=== PATIENT | female | born 1945 | race Caucasian/White ===

== ENCOUNTER 2025-05-26 08:25 | Observation (INO) | payer MEDICARE, SELFPAY ==
[2025-05-26] VITALS (23 sets, daily range): BP systolic 113–195; BP diastolic 44–94; PULSE 64–79; RESP 15–18; TEMP 36.4–37.3; O2SAT 90–94
--- NOTE | 2025-05-26 08:30 | DI.CT_ITS ---
Exam(s) CT CHEST WO EXAM: CT CHEST WO CLINICAL HISTORY: L lower rib posterior injury. TECHNIQUE: Imaging protocol: Axial computed tomography images were obtained and coronal and sagittal reformatted images were created and reviewed. Computer aided detection (CAD) was utilized. CONTRAST MATERIAL: Noncontrast COMPARISON: No exams were available for comparison FINDINGS: Pulmonary parenchyma: Mild multifocal bibasilar atelectasis. No consolidation. There are few small pulmonary nodules, 2 at the left lower lobe. There are 2 small perifissural nodules. There is a small nodule lateral right upper lobe. Emphysema: None. Tracheobronchial tree: No mucous plugging. No bronchiectasis . Pleura: Tiny left pleural effusion. Tiny knee left pneumothorax. Heart: The heart is mildly dilated. The coronary arteries show mild calcifications. Aorta: Thoracic aorta non-dilated. Mild atherosclerotic changes. Pulmonary arteries: Prominent which could indicate pulmonary hypertension. Lymph nodes: No enlarged lymph nodes. Bones: Displaced fractures of the left 6th and 7th ribs laterally. No evidence of thoracic spine compression fracture. Degenerative changes are seen. Upper abdomen: Moderate size hiatal hernia. Soft tissues: Soft tissue air adjacent to the left rib fractures and along the left chest wall. IMPRESSION: Displaced fractures of the left 6th and 7th ribs. Tiny left hemopneumothorax. Small amount of air in the soft tissues of the left lateral chest. Scattered small pulmonary nodules. For multiple solid noncalcified nodules smaller than 6 mm in diameter, no routine follow-up is recommended (grade 2B; weak recommendation, moderate-quality evidence). (Heaven et al., 2017) The preliminary [facility] report was reviewed. RADIATION DOSE DELIVERED: Total DLP DATA REPOSITORY: All CT scans at this facility are submitted to the National Radiology Data Registry (NRDR) Dose Index Registry (DIR) with the [employer] (ACR). RADIATION OPTIMIZATION: All CT scans at this facility use at least one of these dose optimization techniques: automated exposure control; mA and/or kV adjustment per patient size (includes targeted exams where dose is matched to clinical indication); or iterative reconstruction.
--- NOTE | 2025-05-26 09:43 | DI.[facility]AD_ITS ---
Addendum created by Torres Hernandez MD on 05/26/2025 9:43:51 AM EDT: THIS REPORT CONTAINS FINDINGS THAT MAY BE CRITICAL TO PATIENT CARE. The findings were verbally communicated via telephone conference with PRADEEP MUNGUIA at 9:43 AM EDT on 05/26/2025. The findings were acknowledged and understood. Initial report created on 05/26/2025 9:42:40 AM EDT: PROCEDURE INFORMATION: Exam: CT Chest Without Contrast; Diagnostic Exam date and time: 05/26/2025 9:01 AM Age: 80 years old Clinical indication: Injury or trauma; Fall; Blunt trauma (contusions or hematomas) TECHNIQUE: Imaging protocol: Diagnostic computed tomography of the chest without contrast. 3D rendering (Not supervised by radiologist): MIP and/or 3D reconstructed images were created by the technologist. COMPARISON: No relevant prior studies available. FINDINGS: Lungs: Bilateral apical fibrotic changes. Subpleural reticular opacities in the right upper lobe. There is a 5 mm nodule in the left lower lobe (series 2, image 125) and another 6 mm nodule in the left lung base (series 2, image 132). Pleural spaces: Tiny left pneumothorax small layering left pleural effusion. Heart: Unremarkable. No cardiomegaly. No pericardial effusion. Coronary arteries: There is mild atherosclerotic calcification of the coronary arteries. Lymph nodes: Prominent pleural-based left pulmonary lymph nodes. Vasculature: The vasculature demonstrates diffuse mild atherosclerotic calcification. Dilatation of the pulmonary trunk and main pulmonary arteries, that can be seen in cases of pulmonary hypertension. Diaphragm: A moderate hiatal hernia is present. Bones/joints: Minimally displaced fractures of the posterior and lateral arch of the left 6th rib and lateral arch of the left 7th rib.The thoracic spine demonstrates mild degenerative changes at multiple levels. Soft tissues: Mild soft tissue emphysema around the fractures of the left 6th and 7th rib. IMPRESSION: 1. Segmental fracture of the left 6th rib and fracture of the lateral arch of the left 7th rib with tiny left hydropneumothorax, likely containing blood products. 2. Scattered pulmonary nodules measuring up to 6 mm. For patients at low risk (minimal or absent history of smoking and of other known risk factors), no routine follow-up is indicated. For patients at high risk (history of smoking or of other known risk factors), consider optional CT Chest at 12 months. (Reference: Heaven) REFERENCES: Heaven Musa et al. Guidelines for Management of Incidental Pulmonary Nodules Detected on CT Images: From the Fleischner Society 2017. Radiology. 2017;284(1):228-243. Dictated and Authenticated by: Torres Hernandez MD. Orderin Thang Bales MD
[2025-05-26] MEDS: Ketorolac 10 MG TAB PO (10:09)
[2025-05-26] MEDS: Acetaminophen 500 MG TAB 1000 MG PO (10:09)
--- NOTE | 2025-05-26 10:37 | W.ED.GENAD ---
Discharge Plan Disposition Patient Disposition: Admit to [facility] Condition: Stable Discharge Details Clinical Impression: Multiple fractures of ribs of left side, Pneumothorax with hemothorax, traumatic Admit Date/Time: 05/26/25 11:32 Admit Provider: Madhu Del Toro Attending Provider: Madhu Del Toro Primary Care Provider: Swathi,Local ED Provider: Nii Munguia HPI General Date/Time Provider Initiated Documentation: 05/26/25 08:35. HPI Narrative: 80 year-old female presents to ED today by POV/ambulating with her family with a chief complaint of fall during the night last night, striking her left back on the corner of a desk, having L back/rib pain and mild shortness of breath with onset around 0130. Quality described as painful to take deep breaths, sharp, no radiation to fever, cough, respiratory distress, headstrike, LOC, nausea, visual changes, slurred speech. Severity is described as moderate to severe. Palliating factors include nothing attempted. Provoking factors include movement. Events leading up to the incident/Associated Symptoms: Patients family was planning on bringing her back to [place] today, then to [facility] tomorrow. Patient not anticoagulated. Related Data Home Medications ?Medication ?Instructions ?Recorded ?Confirmed cyanocobalamin (B12)-cobamamide 1 jayme sublingual DAILY 05/26/25 05/26/25 5,000 mcg-100 mcg sublingual lozenge (B12) metoprolol tartrate 50 mg tablet 50 mg PO BID 05/26/25 05/26/25 paroxetine HCl 20 mg tablet 20 mg PO DAILY 05/26/25 05/26/25 simvastatin 10 mg tablet 10 mg PO HS 05/26/25 05/26/25 Allergies Allergy/AdvReac Type Severity Reaction Status Date / Time fish derived Allergy Nausea Verified 05/26/25 08:32 General Stated Complaint: Chest/Rib JOHN: 3 Review of Systems All systems reviewed & are unremarkable except as noted in HPI and below Exam Narrative Exam Narrative: GENERAL APPEARANCE: Well-nourished, non-toxic, awake and alert, atraumatic, mild acute distress. SKIN: Warm, pink, dry, intact, without rashes/lesions/ulcerations. HEAD: Normocephalic, atraumatic, normal hair distribution for gender/age. EYES: Normal conjunctiva, no exudates on lids/lashes. ENT: Nares patent, no circumoral cyanosis, no facial swelling NECK: Supple, trachea midline, painless cervical ROM, no midline vertebral tenderness/crepitus/step-offs LUNGS/CHEST: Lungs CTA bilaterally-no focally diminished or absent lung sounds, no rhonchi/rales/wheezes diffusely, non-labored respirations-breathing shallow due to pain, normal A/P diameter, symmetrical expansion, no chest wall deformity, exquisite tenderness without subcutaneous emphysema felt, no flail segment seen HEART (CV/PV): Regular rate and rhythm without murmur, no peripheral edema, no JVD. ABDOMEN: Soft, non-distended, no guarding, no tenderness. MSK: Normal ROM, no swelling/deformity to bilateral UEs or LEs, moving all extremities without weakness, no cyanosis, spine midline without tenderness, normal curvature. NEURO: Mental Status AAOx4 - alert to person, place, time, events No facial droop, no forehead involvement. Motor: No focal weakness - strength 5/5 in bilateral UEs and LEs, proximal and distal, symmetric. Sensory: sensation intact to light touch globally. Gait normal: patient ambulated without ataxia into ED room. PSYCH: euthymic, cooperative, pleasant, appropriate speech Course Vital Signs Vital signs: Vital Signs Temperature 37.3 C 05/26/25 08:26 Pulse 72 05/26/25 08:26 Respiratory Rate 18 05/26/25 08:26 Blood Pressure 192/69 H 05/26/25 08:26 Pulse Oximetry 90 L 05/26/25 08:26 Temperature 37.3 C 05/26/25 08:26 Temperature Source Temporal Artery Scan 05/26/25 08:26 Pulse 74 05/26/25 10:17 Respiratory Rate 18 05/26/25 08:26 Respiratory Depth Shallow 05/26/25 08:48 Respiratory Pattern Normal 05/26/25 08:48 Blood Pressure 195/59 H 05/26/25 10:17 Blood Pressure Mean 104 05/26/25 10:17 Blood Pressure Position Sitting 05/26/25 08:26 Pulse Oximetry 92 05/26/25 10:17 Oxygen Delivery Method Room Air 05/26/25 10:17 Oxygen Flow Rate 0 05/26/25 10:17 Pain Level 9 05/26/25 08:48 Medical Decision Making This dictation utilizes [id number] dictation software and may contain unedited grammatical errors. 80 year-old female presents to ED today by POV/ambulating with her family with a chief complaint of fall during the night last night, striking her left back on the corner of a desk, having L back/rib pain and mild shortness of breath with onset around 0130. Quality described as painful to take deep breaths, sharp, no radiation to fever, cough, respiratory distress, headstrike, LOC, nausea, visual changes, slurred speech. Severity is described as moderate to severe. Palliating factors include nothing attempted. Provoking factors include movement. Events leading up to the incident/Associated Symptoms: Patients family was planning on bringing her back to [place] today, then to [facility] tomorrow. Patients' medical history: Hypertension. Family and social history: Noncontributory. Pertinent exam findings / vital signs include abrasion to lower mid posterior lateral ribs on the left side, no overt crepitus or subcutaneous emphysema felt, lungs CTA diffusely, mildly hypoxic at 89% on room air, no signs of head trauma, no midline vertebral tenderness or crepitus or step-offs. Differential / pathologies of concern include rib fractures, pneumothorax, unlikely head strike. Diagnostic studies of: -CT Chest wo Contrast -shows small pneumothorax, small hemothorax, subcutaneous air in complex sixth rib fracture with a segment floating as well as 1/7 rib fracture. Interventions of: - Tylenol and Toradol given p.o., consulted with general surgery on-call Dr. Del Toro who accepted the patient for admission at 1130. ED Course/Assessment/Plan: 80-year-old female had a fall last night around 1:30 in the morning striking a desk with her back, she has multiple rib fractures left side and a complex hemopneumothorax of a small size with some subcutaneous air due to the displacement of her ribs and her mild hypoxia she is admitted to the hospital by general surgery practice. Disposition of Multiple Fractures of Ribs of Left Side, Pneumothorax with hemothorax, traumatic. Patient verbalized understanding of the plan and return to ED criteria and engaged in shared decision making. Medical Records Medical records reviewed: Yes I reviewed the patient's medical records. Imaging Data Radiologic Study: Attestation: I personally reviewed and interpreted this imaging study as follows: Imaging: CT Scan Radiologist's impression: Addendum created by Torres Hernandez MD on 05/26/2025 9:43:51 AM EDT: THIS REPORT CONTAINS FINDINGS THAT MAY BE CRITICAL TO PATIENT CARE. The findings were verbally communicated via telephone conference with NII MUNGUIA at 9:43 AM EDT on 05/26/2025. The findings were acknowledged and understood. Initial report created on 05/26/2025 9:42:40 AM EDT: PROCEDURE INFORMATION: Exam: CT Chest Without Contrast; Diagnostic Exam date and time: 05/26/2025 9:01 AM Age: 80 years old Clinical indication: Injury or trauma; Fall; Blunt trauma (contusions or hematomas) TECHNIQUE: Imaging protocol: Diagnostic computed tomography of the chest without contrast. 3D rendering (Not supervised by radiologist): MIP and/or 3D reconstructed images were created by the technologist. COMPARISON: No relevant prior studies available. FINDINGS: Lungs: Bilateral apical fibrotic changes. Subpleural reticular opacities in the right upper lobe. There is a 5 mm nodule in the left lower lobe (series 2, image 125) and another 6 mm nodule in the left lung base (series 2, image 132). Pleural spaces: Tiny left pneumothorax small layering left pleural effusion. Heart: Unremarkable. No cardiomegaly. No pericardial effusion. Coronary arteries: There is mild atherosclerotic calcification of the coronary arteries. Lymph nodes: Prominent pleural-based left pulmonary lymph nodes. Vasculature: The vasculature demonstrates diffuse mild atherosclerotic calcification. Dilatation of the pulmonary trunk and main pulmonary arteries, that can be seen in cases of pulmonary hypertension. Diaphragm: A moderate hiatal hernia is present. Bones/joints: Minimally displaced fractures of the posterior and lateral arch of the left 6th rib and lateral arch of the left 7th rib.The thoracic spine demonstrates mild degenerative changes at multiple levels. Soft tissues: Mild soft tissue emphysema around the fractures of the left 6th and 7th rib. IMPRESSION: 1. Segmental fracture of the left 6th rib and fracture of the lateral arch of the left 7th rib with tiny left hydropneumothorax, likely containing blood products. 2. Scattered pulmonary nodules measuring up to 6 mm. For patients at low risk (minimal or absent history of smoking and of other known risk factors), no routine follow-up is indicated. For patients at high risk (history of smoking or of other known risk factors), consider optional CT Chest at 12 months. (Reference: Heaven) REFERENCES: Heaven Musa et al. Guidelines for Management of Incidental Pulmonary Nodules Detected on CT Images: From the Fleischner Society 2017. Radiology. 2017;284(1):228-243. Dictated and Authenticated by: Torres Hernandez MD. [facility] All Active Problems (Updated 05/26/25 @ 11:37 by JINA Nam) Pneumothorax with hemothorax, traumatic (Acute) Multiple fractures of ribs of left side (Acute) Social History Smoking/Tobacco Use Status: Never Smoking risk assessment performed?: Yes Alcohol Intake: current Alcohol Intake frequency: holidays/special occasions only Substance use type: does not use Housing: apartment Do you feel safe at home: Yes Do you feel safe in your relationship?: Yes
--- NOTE | 2025-05-26 11:35 | W.PM.HP.N ---
Date of service: 05/26/25 Time of Service: 11:35 Assessment and Plan Assessment and plan (1) Pneumothorax with hemothorax, traumatic: Status: Acute Assessment and plan: I was able to review the images today, we talked for a while about the natural history of rib fractures. Certainly, she has fractures of the 6th and 7th rib. They are fairly displaced, but there is minimal pneumothorax or hemothorax. And all things considered, she is fairly comfortable which is Tylenol and ketorolac so far. We talked about the importance of pulmonary toileting, and adequate pain control to allow for mobility and ventilation. Given the displacement of the fractures, as well as her age, I think admission for a short period of observation is very reasonable here. I will start a multimodal regimen for pain control, and I think she would benefit from both incentive spirometry, and Acapella device. I will also repeat a chest x-ray later today to ensure no interval development of significant hemo or pneumothorax. History of Present Illness History of Present Illness Chief Complaint: Left-sided thoracic pain Narrative: Symone is 80 years old. She is in town visiting some family. She was staying in a hotel last night, and tripped after using the bathroom, striking the left side of her body on some furniture. She had pain in the left ribs. Family brought her to the emergency department, where she underwent a CT scan that demonstrated left sided 6th and 7th rib fractures with trace hemopneumothorax. Otherwise, she feels pretty well. She denies any abdominal pain. She does have some pain in the chest when she moves and changes position. She does not have any other signs of traumatic injury. Review of Systems Constitutional Constitutional: Denies fever(s) and Reports frequent falls Eyes Eyes: Reports system reviewed and no additional complaints, except as documented ENT Ears, Nose, Mouth, and Throat: Reports system reviewed and no additional complaints, except as documented Cardiovascular Cardiovascular: Reports chest pain (At fracture sites) and Denies dyspnea Respiratory Respiratory: Denies cough and Denies dyspnea Gastrointestinal Gastrointestinal: Reports system reviewed and no additional complaints, except as documented Genitourinary Genitourinary: Reports nocturia and Reports urinary hesitancy Musculoskeletal Musculoskeletal: Reports back pain Neurologic Neurologic: Reports frequent falls Comments: Forgetfulness PFSH All Active Problems (Updated 05/26/25 @ 11:37 by JINA Nam) Pneumothorax with hemothorax, traumatic (Acute) Multiple fractures of ribs of left side (Acute) Social History Smoking/Tobacco Use Status: Never Smoking risk assessment performed?: Yes Alcohol Intake: current Alcohol Intake frequency: holidays/special occasions only Substance use type: does not use Housing: apartment Do you feel safe at home: Yes Do you feel safe in your relationship?: Yes Meds Allergies and Home Medications Allergies Allergy/AdvReac Type Severity Reaction Status Date / Time fish derived Allergy Nausea Verified 05/26/25 08:32 Home Medications ?Medication ?Instructions ?Recorded ?Confirmed ?Type cyanocobalamin (B12)-cobamamide 1 jayme sublingual DAILY 05/26/25 05/26/25 History 5,000 mcg-100 mcg sublingual lozenge (B12) metoprolol tartrate 50 mg tablet 50 mg PO BID 05/26/25 05/26/25 History paroxetine HCl 20 mg tablet 20 mg PO DAILY 05/26/25 05/26/25 History simvastatin 10 mg tablet 10 mg PO HS 05/26/25 05/26/25 History Exam Const General: cooperative, comfortable and no acute distress Orientation: alert and awake [facility] Head: normal to inspection and no palpable skull fracture Eyes General: appearance normal, both eyes and all related structures Neck Neck: normal visual inspection, full ROM, no lymphadenopathy and trachea midline Resp Effort & Inspection: normal respiratory effort and able to speak in complete sentences Auscultation: clear to auscultation bilaterally Cardio Jugular venous pressure: JVD Rate: regular rate Rhythm: regular rhythm Heart Sounds: S1 normal and S2 normal GI Inspection: normal to inspection and non-distended Results Imaging CT scan - chest: report reviewed and image reviewed Last Vital Signs Temp 99.1 F 05/26/25 08:26 Pulse 70 05/26/25 11:31 Resp 18 05/26/25 08:26 BP 143/64 H 05/26/25 11:31 Pulse Ox 92 05/26/25 11:31 Time Spent Time spent with Patient: 55-74 minutes Time was spent: preparing to see the patient(eg.review tests), obtaining and/or reviewing separately otained hiistory, ordering medications,tests, procedures, indepentently interpreting results, counseling the patient and care coordination
--- NOTE | 2025-05-26 12:45 | W.PC.ACHO ---
Registration Status: ADM SHAYE Primary Language: Preferred Language: ED Information & Data Chief Complaint Chest/Rib 05/26/25 10:38 Triage Note middle of night mechanical 05/26/25 08:26 fall, struck left back on corner of dresser. No LOC, did not hit head. Pain only in left lower back/side. Denies difficulty breathing but pain is worse w/ breathing. Has not taken AM BP meds this AM, no thinners Most Recent Vital Signs Temperature 37.1 C 05/26/25 12:20 Temperature Source Temporal Artery Scan 05/26/25 08:26 Pulse 65 05/26/25 12:20 Respiratory Rate 18 05/26/25 12:20 Respiratory Depth Shallow 05/26/25 10:43 Respiratory Pattern Normal 05/26/25 08:48 Blood Pressure 113/94 H 05/26/25 12:20 Blood Pressure Mean 97 05/26/25 12:02 Blood Pressure Position Sitting 05/26/25 10:43 Pulse Oximetry 94 05/26/25 12:20 Oxygen Delivery Method Room Air 05/26/25 11:37 Oxygen Flow Rate 0 05/26/25 11:37 Pain Level 4 05/26/25 12:20 Allergies fish derived Allergy (Verified 05/26/25 08:32) Nausea SWORD FISH ONLY Diagnostics 05/26/25 Range/Units 11:32 Urine Color Pending Urine Clarity Pending Urine pH Pending Ur Specific [place] Pending Urine Protein Pending Urine Ketones Pending Urine Blood Pending Urine Nitrite Pending Urine Bilirubin Pending Urine Urobilinogen Pending Ur Leukocyte Esterase Pending Urine Glucose Pending Intake and Output - 24 Hour Total 05/26/25 08:25 thru 05/26/25 08:26 Weight 68.039 kg Falls Risk Assessment History of Falls Admit Due to Fall 05/26/25 08:44 Contributing Factors Impairments 05/26/25 08:44 Ambulatory Aids Uses ambulatory device 05/26/25 08:44 Tubes/Lines None 05/26/25 08:44 Gait Evaluation W/no contributing factors 05/26/25 08:44 Cognition No cognitive impairment 05/26/25 08:44 Fall Total Score 53 05/26/25 08:44 Level of Risk High Risk 05/26/25 08:44 Problems Pneumothorax with hemothorax, traumatic (Acute) v v v v v v v v v Sending and/or Receiving Nurses: Please use comment section below to note any information pertinent to the patient hand-off not included above. Information / Comments: Report taken, all questions answered Report received from: Report recieved from SAIDA Viera @ [id number]
[2025-05-26] MEDS: Lidocaine 5% Patch 1 PATCH TP (13:18)
[2025-05-26] MEDS: Normal Saline Flush 10 ML SYR IVP ×2 (13:48→20:25)
[2025-05-26] MEDS: Acetaminophen 325 MG TAB 650 MG PO ×2 (13:48→20:21)
--- NOTE | 2025-05-26 17:06 | DI.RAD_ITS ---
Exam(s) XR CHEST 2V PA LATERAL EXAM: XR CHEST 2V PA LATERAL CLINICAL HISTORY: rib fracture/pneumothorax. TECHNIQUE: 2D digital imaging was performed. COMPARISON: No exams were available for comparison FINDINGS: 2 views: Mild cardiomegaly. The mediastinum is not widened. There are displaced adjacent fractures of the left 6th and 7th ribs. There are mild increased markings in left lower lobe. No pleural effusion. There appears to be a tiny less than 5 percent pneumothorax in the left lung apex. There are mild increased markings in the medial opposite right lung base. No right-sided fractures evident. IMPRESSION: Displaced fractures of the left 6 and 7th ribs. Mild infiltrate left lower lobe. Suggestion probable tiny left apical pneumothorax, approximately 5 percent.Recommend repeat chest x-ray in 12 hours, earlier if clinically indicated. DATA REPOSITORY: RADIATION DOSE DELIVERED:
--- NOTE | 2025-05-26 17:10 | DI.VRAD_ITS ---
PROCEDURE INFORMATION: Exam: XR Chest Exam date and time: 05/26/2025 5:07 PM Age: 80 years old Clinical indication: Injury or trauma; Other: Rib FX ? pneumothorax; Injury date: 05/26/25 TECHNIQUE: Imaging protocol: Radiologic exam of the chest. Views: 2 views. COMPARISON: CT CHEST WO 05/26/2025 9:01 AM FINDINGS: Lungs: Left lower lung zone atelectasis. Pleural spaces: The previously described hydropneumothorax is not well as appreciated on the current study due to small size. Heart/Mediastinum: The heart is enlarged. Vasculature: There are aortic arch calcifications. Bones/joints: The thoracic spine demonstrates mild degenerative changes at multiple levels. Minimally displaced fractures of the lateral arches of the left 6th and 7th ribs.A moderate hiatal hernia is present. IMPRESSION: Left lung base atelectasis with trace left pleural effusion. No large pneumothorax is seen. Dictated and Authenticated by: Torres Hernandez MD. Orderin Alverto Leung MD
[2025-05-26] MEDS: Heparin 5,000 UNITS/ML VIAL 5000 UNITS SC (17:56)
[2025-05-26 18:24] LABS: Glucose Negative (Negative)
[2025-05-26] MEDS: Simvastatin 10 MG TAB PO (20:21)
[2025-05-26] MEDS: Metoprolol 50 MG TAB PO (20:21)
[2025-05-27] MEDS: Acetaminophen 325 MG TAB 650 MG PO ×2 (02:14→14:29)
[2025-05-27] MEDS: Patch Removal 1 EACH TP (02:15)
[2025-05-27] MEDS: PARoxetine 20 MG TAB PO (07:37)
[2025-05-27] MEDS: Metoprolol 50 MG TAB PO (07:42)
[2025-05-27] MEDS: Normal Saline Flush 10 ML SYR IVP ×3 (07:43→15:11)
[2025-05-27] MEDS: Heparin 5,000 UNITS/ML VIAL 5000 UNITS SC (07:55)
[2025-05-27 08:18] VITALS: BP 142/52; PULSE 63; RESP 14; TEMP 36.6; O2SAT 97
--- NOTE | 2025-05-27 08:49 | PDOC.CMIN ---
Date of service: 05/27/25 Time of Service: 08:49 Care Management Initial Assmt Initial Assessment Reason for Hospitalization: Rib fractures Functional Status/Living Situation Patient Presentation: Amparo was awake and lying in bed when CM met with her. She is accompanied by her daughter Molly and her MANISHA. Per family report, Amparo resides in [place], [place] with her sister whom is also elderly. They brought her to the area so she could visit her whom resides at a local SNF. Unfortunately, while they were staying at the [facility] she experienced a fall, which resulted in rib fractures and this hospital admission. Molly and her have travel plans this evening and are eager to clarify whether Amparo will be discharging this afternoon vs. tomorrow? Discharge readiness is largely dependent on her ability to wean off supplemental O2. Nursing and RT are aware, CM will continue to follow. Town of Residence: [place], [place] Resides with: Other (Sister) Significant Other/Family: Out of area Natural Supports: Daughter Ana Maria resides in [facility] Daughter Molly and MANISHA reside in [place], [place] Employment Status: Retired Instrumental Activities of Daily Living (ADLs): Independent Medications Medication Management: No Issues/Barriers identified Physical Functioning/Mobility Assistive Device: Has walker and cane, uses PRN Advance Directives Advance Directives: Do you have an Advance Directive: Y 05/26/25, 12:37 AD On File at [facility]: N 05/26/25, 08:27 Date Asked 05/26/25 05/26/25, 08:27 AD Date Reviewed COLST On File at [facility] COLST Date Scanned Code Status Resuscitation Status Full Code Portal Pt does not currently have a portal and education provided: Yes Insurance Coverage/Financial Issues Insurance: AARP/UN.[facility] - [id number] Care Team Visit Care Team Role Provider Type Local No Primary Care Provider NON-[facility] STAFF PHYSICIAN JINA Nam Emergency Provider [employer] Madhu Del Toro MD Admit Provider [facility] STAFF PHYSICIAN Attending Provider Discharge Potential Discharge Needs: PCP F/U Appt ([facility] ) Anticipated Barriers to Discharge: None Identified Patient/Family Education Needs: Review discharge instructions, discuss Ask Me Three Transportation: Private vehicle Plan: Amparo will be discharging to the community and traveling to her daughter Ana Maria's home in [place], [place]. Per family, Ana Maria is an RN and planning to have Amparo follow up with primary care local to [place]. Transportation will be provided by family. CM will follow. Social Determinants of Health Screening Social Determinants of health last assessed in clinic: 05/27/25 Will the Patient Participate in the Screening?: Yes Do you worry about having a steady place to live?: no Problems where you live: no known problems In the past 12 months, have you had to go without electric, gas, oil or water in your home?: no 1. Within the past 12 months, we worried whether our food would run out before we got money to buy more.: Never true 2. Within the past 12 months, the food we bought just didn't last and we didn't have money to get more.: Never true Has lack of transportation kept you from medical appointments or from doing things needed for daily living?: no Has anyone in your life made you feel unsafe or unsupported?: no How hard is it for you to pay for the very basics like food, housing, medical care, and heating? Would you say it is:: Not hard at all Do you want help finding or keeping work or a job?: I do not need or want help If for any reason you need help with day-to-day activities such as bathing, preparing meals, shopping, managing finances, etc., do you get the help you need?: I don?t need any help How often do you feel lonely or isolated from those around you?: Never Do you speak a language other than Bel[place]ian at home?: No Does the patient want assistance with any of the above?: No Comments: visiting from [facility] All Active Problems (Updated 05/26/25 @ 11:37 by JINA Nam) Pneumothorax with hemothorax, traumatic (Acute) Multiple fractures of ribs of left side (Acute) Social History Smoking/Tobacco Use Status: Never Smoking risk assessment performed?: Yes Alcohol Intake: current Alcohol Intake frequency: holidays/special occasions only Substance use type: does not use Housing: apartment Do you feel safe at home: Yes Do you feel safe in your relationship?: Yes
--- NOTE | 2025-05-27 08:57 | PGE_ITS ---
Date of Service Date of service: 05/27/25 Time of Service: 08:57 Assessment and Plan Assessment and plan (1) Multiple fractures of ribs of left side: Status: Acute Assessment and plan: Patient is an 80-year-old female who presented after fall. In the emergency department she had further imaging which showed left 6th and 7th rib fractures without trace hemopneumothorax. She was admitted to the surgery service for ongoing observation. Following admission she had a repeat chest x-ray which again showed a tiny apical pneumothorax on the left. This morning she notes she is doing well. She states that her pain is well-controlled. She denies any shortness of breath. She was placed on 2 L nasal cannula overnight for desaturation while sleeping. On exam today she is afebrile and hemodynamically stable. Her respirations are nonlabored. Her abdomen is soft and nontender. Her imaging that was obtained yesterday was reviewed. The findings of the rib fractures as well as the tiny hemopneumothorax was discussed with her today. Will continue multimodal pain control. Continue I-S and Acapella. Plan for ambulation and further mobility today. Wean oxygen as as tolerated. Will discuss potential discharge later today pending ability to wean oxygen, pain control, and mobility. (2) Pneumothorax with hemothorax, traumatic: Status: Acute Subjective Subjective Interval history since last seen: She states she is doing well this morning. She denies any shortness of breath. She does endorse some discomfort on her left ribs but notes the pain is tolerable. She states she has been working with her breathing devices prior to sleeping yesterday. She notes that she was able to tolerate a regular diet. She denies any nausea, vomiting, fevers, chills, abdominal pain. She states she has yet to be out of bed this morning. She was placed on oxygen overnight given desaturation while sleeping. Exam Narrative Exam Narrative: General: Well appearing, no acute distress. Skin: Good turgor, no visible rashes or lesion HEENT: Normocephalic, atraumatic, no visible masses CV: Regular rate Lungs: Bilateral equal chest rise, non-labored breathing Abdomen: Soft, non-tender, non-distended Extremities: Warm, well perfused Neurologic: No focal deficits Psychiatric: Alert and oriented, normal mood and affect Objective Last Vital Signs Temp 36.6 C 05/27/25 08:18 Pulse 63 09/29/25 08:18 Resp 14 05/27/25 08:18 BP 142/52 H 05/27/25 08:18 Pulse Ox 97 05/27/25 08:18 Laboratory Results - last 24 hr 05/26/25 17:46 Urine Color Yellow Urine Clarity Sl Cloudy Urine pH 6.5 Ur Specific [place] 1.020 Urine Protein 100 H Urine Ketones 15 H Urine Blood Trace-lysed H Urine Nitrite Negative Urine Bilirubin Small H Urine Urobilinogen 0.2 Ur Leukocyte Esterase Trace H Urine RBC 3-5 H Urine WBC 10-20 H Ur Epithelial Cells Moderate Urine Crystals Negative Urine Bacteria Moderate Urine Casts 0-2 Hyaline Urine Mucus Trace Ur Culture Indicated? No/Sq. Contamination Urine Glucose Negative Time Spent with Patient Time Spent with Patient: <25 minutes Time was spent: preparing to see the patient(eg.review tests), obtaining and/or reviewing separately otained hiistory, indepentently interpreting results and counseling the patient
--- NOTE | 2025-05-27 13:01 | NUR.NOTE ---
Nursing Note: Documentation by Justina Pierre, PN student reviewed.
--- NOTE | 2025-05-27 14:00 | PDOC.DSDIS_ITS ---
Date of service: 05/27/25 Discharge Plan Disposition Patient Disposition: Home Condition: Good Discharge Details Reason For Visit: Rib Fractures Admit Date/Time: 05/26/25 11:32 Admit Provider: Madhu Del Toro Attending Provider: Madhu Del Toro [facility] Course: Patient is an 80-year-old female who was admitted to the general surgery service after a fall. She was found to have 2 right-sided rib fractures as well as a tiny hemopneumothorax. She was admitted overnight to the hospital for observation and monitoring. She had a repeat chest x-ray which showed a stable tiny hemopneumothorax. The following morning she stated that her pain was well- controlled and she denied shortness of breath. On exam she was hemodynamically stable and weaned off of oxygen which was placed overnight for a desaturation. She was deemed appropriate for discharge home with family. At the time of discharge she was ambulating, tolerating regular diet, and her pain was well- controlled. Discharge recommendations were discussed at length with her and her family as they were traveling from the [facility]. She will have assistance at home 24 hours a day. She was instructed to follow-up with her PCP. Recommendations for Follow Up Recommended tests to be ordered by follow up provider: None. Home Meds and New Rx's Prescriptions: Continued paroxetine HCl 20 mg tablet 20 mg PO DAILY Patient Comments: TAKE 1 TABLET BY MOUTH EVERY DAY metoprolol tartrate 50 mg tablet 50 mg PO BID Patient Comments: TAKE 1 TABLET BY MOUTH TWO TIMES DAILY simvastatin 10 mg tablet 10 mg PO HS Patient Comments: TAKE 1 TABLET BY MOUTH NIGHTLY AT BEDTIME B12 5,000-100 mcg lozenge 1 jayme sublingual DAILY Discharge Instructions Instructions: Rib fractures in adults, Pneumothorax (Collapsed Lung) (DC) Additional Instructions: Please follow-up with your PCP after discahrge from the hospital within 7-10 days. Activity:: Activity as Tolerated Equipment/Supplies:: No Equipment Needed Diet:: As Tolerated Discharge Orders Discharge Orders: Discharge Order (Routine); Ordered 05/27/25 Ordered By: Rocio Aldana DS: Diagnosis Discharge Diagnosis (1) Multiple fractures of ribs of left side: Status: Acute Asessment and Plan: Patient is an 80-year-old female who presented after fall. In the emergency department she had further imaging which showed left 6th and 7th rib fractures without trace hemopneumothorax. She was admitted to the surgery service for ongoing observation. Following admission she had a repeat chest x-ray which again showed a tiny apical pneumothorax on the left. This morning she notes she is doing well. She states that her pain is well-controlled. She denies any shortness of breath. She was placed on 2 L nasal cannula overnight for desaturation while sleeping. On exam today she is afebrile and hemodynamically stable. Her respirations are nonlabored. Her abdomen is soft and nontender. Her imaging that was obtained yesterday was reviewed. The findings of the rib fractures as well as the tiny hemopneumothorax was discussed with her today. Will continue multimodal pain control. Continue I-S and Acapella. Plan for ambulation and further mobility today. Wean oxygen as as tolerated. Will discuss potential discharge later today pending ability to wean oxygen, pain control, and mobility. (2) Pneumothorax with hemothorax, traumatic: Status: Acute
[2025-05-27] MEDS: Lidocaine 5% Patch 1 PATCH TP (15:11)
[2025-05-27] MEDS: Ketorolac 15 MG/ML VIAL IVP (15:11)
== END 2025-05-27 15:38 | disposition home or self-care (01) ==
LOC: ER 11:37 → MS 12:37
PROVIDERS: Admitting Provider Surgery; Emergency Provider Physician Assistant; Responsible Provider Surgery; Visit Provider Surgery
DX: S22.42XA Multiple fractures of ribs, left side, initial encounter for closed fracture (principal); S27.2XXA Traumatic hemopneumothorax, initial encounter; W01.190A Fall on same level from slipping, tripping and stumbling with subsequent striking against furniture, initial encounter
CPT/HCPCS: 71250; 96372; 96374; 99222; 99238; 99285; 71046; 81003; 81015; 94667; G0378; J1644; J1885; J3490